=== PATIENT | female | born 1990 | race Two or more races ===

== ENCOUNTER 2023-12-17 07:44 | Inpatient (IN) ==
[2023-12-17] MEDS: LACTATED RINGER'S 1,000 ML IV PRN (09:02)
[2023-12-17] MEDS ORDERED: OXYTOCIN 30 UNITS/NSS 30 UNITS/500 ML BAG IV PRN (09:12)
[2023-12-17] MEDS ORDERED: LIDOCAINE 1% LOCAL 20 ML VIAL INFIL PRN (09:12)
[2023-12-17] MEDS ORDERED: DEXTROSE 50% 50 ML SYRINGE IV PRN (09:12)
[2023-12-17] MEDS ORDERED: SODIUM CHLORIDE 0.9% 1,000 ML IV PRN (09:12)
[2023-12-17 09:51] LABS: Hemoglobin 12.6 g/dl (12.0-16.0); Mean Corpuscular Hemoglobin 31.2 pg (25.0-34.0); Mean Corpuscular Hgb Conc 34.1 g/dL (32.0-36.0); Mean Corpuscular Volume 91.6 fL (80.0-100.0); Mean Platelet Volume 13.5 fL (9.4-12.4); Platelet Count 151 K/uL (130-400); RDW Coefficient of Variation 14.9 % (11.5-14.5); RDW Standard Deviation 49.9 fL (36.4-46.3); Red Blood Count 4.04 M/uL (4.20-5.40)
[2023-12-17] MEDS ORDERED: NALOXONE HCL 0.4 MG/1 ML VIAL/CARP IV PRN (10:02)
[2023-12-17] MEDS ORDERED: NALBUPHINE HCL 5 MG in SYRINGE 0 ML IV PRN (10:02)
[2023-12-17] MEDS ORDERED: NALOXONE HCL 1 MG in SODIUM CHLORIDE 0.9% 1,000 ML IV PRN (10:02)
[2023-12-17] MEDS ORDERED: LIDOCAINE 2% MPF LOCAL 5 ML VIAL EPI PRN (10:02)
[2023-12-17] MEDS ORDERED: SODIUM CHLORIDE 0.9% PF INJ 10 ML VIAL EPI PRN (10:02)
[2023-12-17] MEDS ORDERED: ROPIVACAINE 0.5% PF 5 MG/ML 20 ML VIAL EPI PRN (10:02)
[2023-12-17] MEDS ORDERED: fentaNYL citrate PF 100 MCG/2 ML VIAL EPI PRN (10:02)
[2023-12-17] MEDS ORDERED: BUPIVACAINE 0.25% PF 30 ML VIAL EPI PRN (10:02)
[2023-12-17] MEDS ORDERED: ePHEDrine sulfate 50 MG/ML AMP IV PRN (10:02)
--- NOTE | 2023-12-17 10:06 | Anesthesiology Consultation ---
Date of Service December 17, 2023 Assessment & Plan Chart Review Chart Review: Patient NOT seen in Pre Admission Testing and Acceptable Risk for Labor Epidural Consults Requested none ASA ASA2 Proposed Anesthesia Anesthesia Type: Labor Epidural Risk / Benefits Reviewed With: PT / POA / Parent / Guardian, Accepts Plan and Informed Consent Obtained History Height/Weight Height: 5 ft 3 in Weight: 85.275 kg Allergies Allergy/AdvReac Type Severity Reaction Status Date / Time No Known Allergies Allergy Verified 12/16/23 13:36 Medications Home Medications Medication Instructions Recorded Confirmed Last Taken acetone (urine) test (Ketone Urine #50 ea 08/08/23 12/16/23 Unknown Test strips) blood sugar diagnostic (OneTouch #150 ea 08/08/23 12/16/23 Unknown Verio test strips) blood-glucose meter (OneTouch #1 ea 08/08/23 12/16/23 Unknown Verio Reflect Meter) lancets 33 gauge (OneTouch Delica #150 ea 08/08/23 12/16/23 Unknown Plus Lancet) pen needle, diabetic 32 gauge x #150 ea 10/10/23 12/16/23 Unknown 5/32" (BD Keiko 2nd Gen Pen Needle) insulin NPH isoph U-100 human 100 18 unit subcut HS 11/25/23 12/17/23 12/15/23 21:00 unit/mL (3 mL) subcutaneous pen (Novolin N FlexPen) insulin lispro 100 unit/mL 14 unit subcut BID 11/25/23 12/17/23 12/15/23 17:00 subcutaneous pen (Humalog KwikPen (U-100) Insulin) vit no.95-ferrous 1 tab PO DAILY 12/17/23 12/17/23 12/16/23 08:00 fumarate 28 mg-folic acid 800 mcg tablet () Active Medications Generic Name Dose Route Start Last Admin Trade Name Freq PRN Reason Stop Dose Admin Fentanyl/Bupivacaine/Sodium Chlor 100 ml 12/17/23 10:02 12/17/23 10:34 Fentanyl 2 Mcg/Ml Bupivacaine 0.125%-Nss 100ml Bag EPI 12/18/23 10:01 100 ml PRN PRN Administration Pain R/T Labor Protocol Lactated Ringer's 1,000 mls @ 125 mls/hr 12/17/23 09:12 12/17/23 10:22 Lr IV 12/19/23 09:11 125 mls/hr .Q8H PRN Administration L&D Protocol Protocol NPO Date Last Intake of Fluids: 12/17/23 Time Last Intake of Fluids: 10:00 Date Last Intake of Solids: 12/17/23 Time Last Intake of Solids: 07:00 Past Medical History Medical History Varicella vaccination History of chicken pox Exercise / Class Metabolic Activity II 4-5 Yardwork/Stairs/Walk up hill Past Family History Family History Father Diabetes Mother Diabetes Denies family history of Ovarian cancer Prostate cancer Myocardial infarction Breast cancer Colorectal cancer Uterine cancer Past Surgical History Surgical History No pertinent past surgical history Past Anesthesia History No Hx of Anesthesia Complications and No Family Hx of Anesthesia Complications History of PONV No Hx of PONV and No Hx of Motion Sickness Social History Smoking Status: Never smoker Do You Dip or Chew Tobacco: No Hx Alcohol Use: No Hx Substance Use: No substance use type: does not use Review of Systems ROS Unobtainable: All systems reviewed & are unremarkable except as noted in HPI & below Physical Exam Vital Signs Last Vital Signs Temp 36.9 C 12/17/23 08:00 Pulse 101 H 12/17/23 08:00 Resp 18 12/17/23 08:00 BP 112/72 12/17/23 08:00 ENMT Mouth: no TMJ abnormality Thyromental Distance: > or= 3.5 Finger Breadths Mallampati Class: II Neck normal visual inspection and trachea midline; neck extension not limited Respiratory normal respiratory effort Auscultation: lungs clear to auscultation bilaterally Cardiovascular Rate/Rhythm: regular rate and regular rhythm Heart Sounds: no murmur Musculoskeletal Spine: normal cervical ROM Extremities: full ROM of extremities Neurologic moves all extremities Psychiatric Orientation: alert and oriented x 3 Testing Laboratory Results 12/17/23 09:26 12/17/23 09:17 POC Glucose 109 H
[2023-12-17] MEDS: BUPIVACAINE 0.25% PF 30 ML VIAL EPI STA (10:29)
[2023-12-17] MEDS: SODIUM CHLORIDE 0.9% PF INJ 10 ML VIAL EPI STA (10:29)
[2023-12-17] MEDS: LIDOCAINE 2%/EPINEPHRINE 1:200,000 20 ML PF EPI STA (10:29)
[2023-12-17] MEDS: ePHEDrine sulfate 50 MG/ML AMP ONE (10:30)
[2023-12-17] MEDS: fentANYL 2 MCG/ML BUPIVacaine 0.125%-NSS 100ML BAG ONE (10:31)
[2023-12-17] MEDS: fentaNYL citrate PF 100 MCG/2 ML VIAL EPI STA (10:31)
[2023-12-17] MEDS: fentaNYL citrate PF 100 MCG/2 ML VIAL ONE (10:31)
[2023-12-17] MEDS: LIDOCAINE 2%/EPINEPHRINE 1:200,000 20 ML PF ONE (10:31)
[2023-12-17] MEDS: SODIUM CHLORIDE 0.9% PF INJ 10 ML VIAL ONE (10:31)
[2023-12-17] MEDS: BUPIVACAINE 0.25% PF 30 ML VIAL ONE (10:31)
[2023-12-17] MEDS: fentANYL 2 MCG/ML BUPIVacaine 0.125%-NSS 100ML BAG EPI PRN (10:34)
[2023-12-17] MEDS ORDERED: ONDANSETRON INJ 2 MG/ML 2 ML VIAL IV PRN (11:33)
[2023-12-17] MEDS: OXYTOCIN 30 UNITS/NSS 30 UNITS/500 ML BAG IV PRN (12:15)
--- NOTE | 2023-12-17 12:20 | Labor Progress Brief Note ---
Date of Service December 17, 2023 Subjective Patient has received epidural with expected regional numbness. She has had several apparent panic attacks with vagal response (nausea, ringing ears, feeling presyncope) precipitated by medical procedures such as IV placement and cervical exam. Responds well to T-omkar and reassurance. Assessment & Plan (1) Insulin controlled gestational diabetes mellitus (GDM) during : Plan: IOL for A2GDM, with bhatia placement c/b ROM. Will begin pitocin. Epidural already established for medical anxiety and low pain tolerance. Admission and Anticipated Discharge Date Admission Date: December 17, 2023 Physical Exam Genitourinary: / Bhatia placement attempted but ROM evident by clear amniotic fluid filling bhatia as soon as it passed through cervix, no attempt made to inflate balloon. Bhatia removed. FHT Ca 1 [place] Q3-4 Results & Data Vital Signs (Past 12 Hours) Vital Signs Temp Pulse Resp BP Pulse Ox 12/17/23 12:10 65 100 12/17/23 12:05 98 H 100 12/17/23 12:04 80 120/63 12/17/23 12:00 78 99 12/17/23 11:59 85 116/61 12/17/23 11:55 76 99 12/17/23 11:54 80 116/66 12/17/23 11:50 90 99 12/17/23 11:49 86 111/64 12/17/23 11:45 83 115/71 99 12/17/23 11:40 88 98 12/17/23 11:39 83 113/59 L 12/17/23 11:35 101 H 100 12/17/23 11:34 104 H 104/58 L 12/17/23 11:33 93 H 114/62 12/17/23 11:30 74 97 12/17/23 11:26 97 H 119/59 L 12/17/23 11:25 98 H 100 12/17/23 11:20 92 H 111/69 99 12/17/23 11:15 90 99 12/17/23 11:14 80 118/74 12/17/23 11:10 95 H 99 12/17/23 11:09 88 109/73 12/17/23 11:05 94 H 99 12/17/23 11:04 93 H 110/70 12/17/23 11:00 99 H 100 12/17/23 10:59 86 111/67 12/17/23 10:55 91 H 99 12/17/23 10:54 90 111/62 12/17/23 10:52 95 H 117/67 12/17/23 10:50 99 12/17/23 10:50 93 H 12/17/23 10:50 87 117/69 12/17/23 10:48 88 115/58 L 12/17/23 10:46 90 119/59 L 12/17/23 10:45 93 H 99 12/17/23 10:44 96 H 118/68 12/17/23 10:42 96 H 118/62 12/17/23 10:40 90 113/56 L 98 12/17/23 10:39 92 H 132/56 L 12/17/23 10:36 90 118/69 12/17/23 10:35 101 H 99 12/17/23 10:34 96 H 122/59 L 12/17/23 10:32 97 H 128/58 L 12/17/23 10:30 91 H 123/58 L 99 12/17/23 10:28 100 H 146/97 H 12/17/23 10:26 101 H 132/86 12/17/23 10:25 100 H 99 12/17/23 10:20 102 H 98 12/17/23 08:00 98.4 F 101 H 18 112/72 12/17/23 08:00 98.4 F 101 H 18 112/72 Laboratory Results Laboratory Results - last 24 hr 12/17/23 12/17/23 12/17/23 09:17 09:26 10:55 WBC 7.10 RBC 4.04 L Hgb 12.6 Hct 37.0 MCV 91.6 MCH 31.2 MCHC 34.1 RDW Std Deviation 49.9 H RDW Coeff of Deanna 14.9 H Plt Count 151 MPV 13.5 H POC Glucose 109 H 105 H Coding Level of Care Code None Diagnoses Insulin controlled gestational diabetes mellitus (GDM) during O24.414
[2023-12-17] MEDS: INSULIN REGULAR 250 UNITS in SODIUM CHLORIDE 0.9% 247.5 ML IV PRN (15:11)
--- NOTE | 2023-12-17 15:11 | Communication Note ---
Date of Service: December 17, 2023 Patient comfortable with epidural. T Cat 1 [place] Q4, pit@ 10 Cervix recently checked by RN during bladder cath; reports no change. Insulin/D5 Gtt per protocol Plan: Continue pitocin IOL. Continue GDM insulin protocol.
[2023-12-17] MEDS: DEXTROSE 5% 1,000 ML IV PRN (15:12)
[2023-12-17] MEDS: diphenhydrAMINE 50 MG/ML VIAL IV PRN (15:19)
[2023-12-17] MEDS ORDERED: NURSING L&D Epidural Breakthrough Pain Update ONE (18:02)
--- NOTE | 2023-12-18 04:03 | Delivery Summary ---
Vaginal Delivery Summary Date of Service December 18, 2023 Vaginal Delivery Summary DIAGNOSES: 1. Miller intrauterine at 39w4d gestation. 2. Induction of labor for A2GDM. 3. Group B Streptococcus Neg. PROCEDURE: Spontaneous vaginal delivery and repair of second degree laceration. SURGEON: Lacey Fernández MD. HYDROELECTRIC STATION CHIEF: None. QUANTITATIVE BLOOD LOSS: 257 mL. COMPLICATIONS: None. PLACENTA: Spontaneous and intact with a 3-vessel cord. DISPOSITION: Stable to labor and delivery. DESCRIPTION: The patient pushed well and brought the head to in OA position. The infant's head was allowed to deliver with contraction force and no further active pushing, with the perineum protected during this time. There was no nuchal cord. The shoulders and body delivered without any difficulty, and the was placed on the maternal abdomen. It was vigorous and moving all extremities, and making respiratory efforts. The cord was doubly clamped by the MD and then cut by the FOB. The placenta delivered spontaneously and was noted to be intact and with a 3VC. The cervix, vagina and perineum were examined and were found to have a second degree laceration which was repaired using vicryl suture in the usual manner. The fundus was firm and lochia minimal immediately after delivery. [facility] Vaginal Delivery Charge Vaginal Delivery Codes: 74248 global code for the antepartum, delivery, and post-
[2023-12-18] MEDS ORDERED: HYDROCORTISONE ACETATE 25 MG SUPP PR PRN (04:59)
[2023-12-18] MEDS ORDERED: bisacodyL 10 MG SUPP PR PRN (04:59)
[2023-12-18] MEDS ORDERED: ACETAMINOPHEN 325 MG TAB PO PRN (04:59)
[2023-12-18] MEDS ORDERED: OXYTOCIN 30 UNITS/NSS 30 UNITS/500 ML BAG IV PRN (04:59)
--- NOTE | 2023-12-18 07:11 | Anesthesia Procedure Note ---
Date of Service December 18, 2023 Anesthesia Post Epidural Note Vital Signs Vital Signs: Temp Pulse Resp BP Pulse Ox 37.1 C 115 H 16 128/80 97 12/18/23 06:05 12/18/23 05:52 12/18/23 06:05 12/18/23 05:52 12/18/23 05:30 Pain Intensity Lower Abdomen: Pain Intensity: 3 Notes Mental Status: alert / awake / arousable and participated in evaluation Nausea / Vomiting: adequately controlled Pain: adequately controlled Airway Patency, RR, SpO2: stable & adequate BP & HR: stable & adequate Hydration State: stable & adequate Neuraxial Anesthesia: was administered and sensory block resolved Anesthetic Complications: no major complications apparent and Pt Satisfied with anesthetic care Epidural: Removed without complications and With tip intact
[2023-12-18] MEDS: DOCUSATE SODIUM 100 MG CAP PO SCH (07:45)
[2023-12-18] MEDS: IBUPROFEN 600 MG TAB PO PRN (07:45)
[2023-12-18] MEDS: PRENATAL VITAMIN 1 TAB PO SCH (07:46)
[2023-12-18] MEDS: oxyCODONE/ACETAMINOPHEN 5mg/325mg TAB PO PRN (07:46)
[2023-12-18] MEDS: DIPHTHER/TETAN/PERTUS Vaccine (Tdap, Adol/Adult) 0.5mL IM ONE (15:59)
[2023-12-18] MEDS: BENZOCAINE 20% SPRY 85 APPLN/85 GM CAN EXT PRN (20:09)
--- NOTE | 2023-12-19 06:26 | Obstetrical Progress Note ---
Date of Service <Fernando Spencer DO - Last Filed: 12/19/23 06:28> December 19, 2023 Assessment & Plan <Fernando Spencer DO - Last Filed: 12/19/23 06:28> (1) Encounter for assessment: visit type: exam and care immediately after delivery Qualified Code(s): Z39.0 - Encounter for care and examination of mother immediately after delivery Plan 33 yo PPD#1: Eating well, voiding well, ambulating well Vitals reviewed, WNL Pain well controlled with Percocet and Motrin Routine post care - OOB, ambulation, diet progression as tolerated Will have 6 week follow up with Dr. Fernández <Unique Gonzalez MD, FACOG - Last Filed: 12/19/23 08:53> (1) Encounter for assessment: Subjective <Fernando Spencer - Last Filed: 12/19/23 06:28> Ambulation: ambulating normally Voiding: no voiding problems Diet Tolerance:: regular diet Lochia:: Small Feeding Type:: breast feeding (supplementing with formula currently ) Pain well controlled with Percocet and Motrin Review of Systems -Denies fever or chills -Denies dyspnea, chest pain, or palpitations -Denies dysuria -Denies headache or changes in vision Physical Exam <Fernando Spencer - Last Filed: 12/19/23 06:28> General: Alert and oriented. No acute distress Cardiac: Regular rate and rhythm, no murmurs appreciated Respiratory: Lungs clear to auscultation bilaterally, No increased work of breathing Abdominal: Soft, non-tender, non-distended. Bowel sounds present. Uterus: Uterine fundus firm, palpable below umbilicus Extremities: No lower extremity edema, calves non-tender bilaterally Results & Data <Fernando Spencer - Last Filed: 12/19/23 06:28> Vital Signs (Past 12 Hours) Vital Signs Temp Pulse Resp BP Pulse Ox O2 Del Method 12/19/23 02:34 36.5 C 95 H 18 108/71 97 Room Air 12/18/23 23:00 36.6 C 100 H 18 100/67 98 Room Air 12/18/23 19:30 37.0 C 100 H 18 118/78 95 Room Air Supervising Physician <Unique Gonzalez MD, FACOG - Last Filed: 12/19/23 08:53> Co-Signing Physician Notes Resident Physician Supervision Note: I interviewed and examined the patient. Discussed with Dr. Spencer and agree with findings and plan as documented in the note. Any exceptions or clarifications are listed here: [None] Documented By: Unique Gonzalez MD, FACOG Resident Activity Tracking <Fernando Spencer DO - Last Filed: 12/19/23 06:28> Resident Involvement: Resident Care Provided Care Provided: OB Delivery
[2023-12-19 07:12] LABS: Hematocrit (blood only) 28.6 % (37.0-47.0); Hemoglobin 9.6 g/dl (12.0-16.0); Mean Corpuscular Hemoglobin 31.5 pg (25.0-34.0); Mean Corpuscular Hgb Conc 33.6 g/dL (32.0-36.0); Mean Corpuscular Volume 93.8 fL (80.0-100.0); Mean Platelet Volume 13.4 fL (9.4-12.4); Platelet Count 139 K/uL (130-400); RDW Coefficient of Variation 15.4 % (11.5-14.5); RDW Standard Deviation 52.7 fL (36.4-46.3); Red Blood Count 3.05 M/uL (4.20-5.40); White Blood Count 12.63 K/ul (4.8-10.8)
[2023-12-19] MEDS: bisacodyL 5 MG TABEC PO SCH (20:19)
[2023-12-20 06:41] LABS: Hematocrit (blood only) 31.5 % (37.0-47.0); Hemoglobin 10.4 g/dl (12.0-16.0)
--- NOTE | 2023-12-20 07:09 | Obstetrical Progress Note ---
Date of Service <Fernando Spencer DO - Last Filed: 12/20/23 07:57> December 20, 2023 Assessment & Plan <Fernando Spencer DO - Last Filed: 12/20/23 07:57> (1) Encounter for assessment: visit type: exam and care immediately after delivery Qualified Code(s): Z39.0 - Encounter for care and examination of mother immediately after delivery Plan 33 yo PPD#2: Eating well, voiding well, ambulating well Vitals reviewed, WNL Pain well controlled with Percocet and Motrin Routine post care - OOB, ambulation, diet progression as tolerated Will have 6 week follow up with Dr. Fernández <Barbara Watson MD, FACOG - Last Filed: 12/20/23 08:03> (1) Encounter for assessment: Subjective <Fernando Spencer DO - Last Filed: 12/20/23 07:57> Ambulation: ambulating normally Voiding: no voiding problems Diet Tolerance:: regular diet Lochia:: Small Feeding Type:: breast feeding Pain not adequately controlled with Motrin alone, well controlled with addition of Percocet Review of Systems -Denies fever or chills -Denies dyspnea, chest pain, or palpitations -Denies dysuria -Denies headache or changes in vision Physical Exam <Fernando Spencer DO - Last Filed: 12/20/23 07:57> General: Alert and oriented. No acute distress Cardiac: Regular rate and rhythm, no murmurs appreciated Respiratory: Lungs clear to auscultation bilaterally, No increased work of breathing Abdominal: Soft, non-tender, non-distended. Bowel sounds present. Uterus: Uterine fundus firm, palpable below umbilicus Extremities: No lower extremity edema, calves non-tender bilaterally Results & Data <Fernando Spencer DO - Last Filed: 12/20/23 07:57> Vital Signs (Past 12 Hours) Vital Signs Temp Pulse Resp BP Pulse Ox O2 Del Method 12/19/23 23:15 36.6 C 83 18 119/74 99 Room Air 12/19/23 19:40 36.7 C 89 18 114/74 97 Room Air Supervising Physician <Barbara Watson MD, FACOG - Last Filed: 12/20/23 08:03> Co-Signing Physician Notes Resident Physician Supervision Note: I was present with Dr. Spencer during the history and exam. I discussed the case with the resident and agree with the findings and plan as documented in the note. Any exceptions or clarifications are listed here: pt continues to use narcotic to help perineal pain with minimal mvmt, not doing sitz baths. notes eating, and voiding. has not tried motrin alt with tylenol. nurse called to bedside, perineum exam, wnl, no evidence of induration, tenderness, poor healing. nt calves ff 2 down nt. she is anxious about moving and admits that may be reason she perceives pain. rec dc percocet, use motrin and tylenol alt, move more, sitz baths now. expectations for discomfort reviewed, cannot stop from moving etc. breast feeding, rhpos, ri. dc home later today, work on pain mgmt and ambulation for now. reassured healing of perineum looks normal. Documented By: Barbara Watson MD, FACOG Resident Activity Tracking <Fernando Spencer, DO - Last Filed: 12/20/23 07:57> Resident Involvement: Resident Care Provided Care Provided: OB Delivery
== END 2023-12-20 14:34 | disposition home or self-care (01) | DRG 807 ==
LOC: 4S1 07:44 → 4E2 12-18 06:37